=== PATIENT | female | born 1950 | race Caucasian/White ===

== ENCOUNTER 2016-04-13 11:56 | Emergency (ER) | payer OTHER ==
[2016-04-13 12:30] VITALS: BP 131/75; PULSE 90; RESP 18; TEMP 99; O2SAT 93
--- NOTE | 2016-04-13 13:56 | CT ---
CT Brain (Without Contrast) at 1303 hours History: Headache post fall. Comparison: None. Technique: Axial computed tomographic images of the brain without contrast. Dose reduction technique s were utilized. Findings: Ventricles, cisterns, and sulci are normal without atrophy, hydrocephalus, midline shift/h erniation, or epidural/subdural hematomas. No acute intraparenchymal hemorrhage, definite infarct, or mass effect. Bone windows demonstrate no displaced fractures. Paranasal sinuses and mastoid air cell s are clear. Impression: 1. Normal CT brain without contrast. 2. No epidural or subdural hematoma. Findings and recommendations discussed with Emergency Department physician, Dr. Cristiane Villa at 1350 hour, today. Final report concurs with initial preliminary interpretation.
--- NOTE | 2016-04-13 13:56 | UCPHY ---
H & P Time Seen by Provider: 04/13/16 12:14 Patient Type: Established HPI/ROS: 66-year-old female presents complaining that she fell on March 25 hitting the back of her head and since that time she has had intermittent headaches. Review of systems General no fever no chills no weakness HEENT no eye pain no eye discharge. No eye redness, no sore throat Respiratory no cough, no shortness of breath Cardiac no chest pain, no peripheral edema GI no abdominal pain, no diarrhea, no constipation, no nausea, no vomiting no flank pain, no hematuria, no dysuria Musculoskeletal no myalgias, no joint pain Heme no easy bruising, no easy bleeding Endo no polyuria, no polydipsia Skin no rashes, no pruritus Neuro no syncope, no dizziness, positive headaches Psych is no suicidal ideation, no homicidal ideation Past Medical/Surgical History: Hypothyroidism Cervical spine stenosis Hypertension Social History: No alcohol or drug use Smoking Status: Former smoker Physical Exam: 66-year-old female alert and oriented no acute distress nontoxic appearance, afebrile HEENT atraumatic normocephalic, extraocular muscles intact, anicteric Oropharynx negative for erythema negative exudate, tolerating her own secretions Neck supple no meningismus Lungs clear to auscultation bilaterally Heart regular rate and rhythm without murmur rub or gallop Abdomen nondistended normoactive bowel sounds soft nontender Back no CVA tenderness, no step-offs, no spinal tenderness Extremities no cyanosis clubbing or edema Neuro alert and oriented, no focal deficits Constitutional: Initial Vital Signs Temperature (C) 37.2 C 04/13/16 12:15 Heart Rate 90 04/13/16 12:15 Respiratory Rate 18 04/13/16 12:15 Blood Pressure 131/75 H 04/13/16 12:15 O2 Sat (%) 93 04/13/16 12:15 O2 Delivery Mode Room Air Allergies/Adverse Reactions: aspirin [Aspirin] Allergy (Severe, Verified 04/13/16 12:07) Anaphylaxis hydromorphone HCl [From Dilaudid] Allergy (Mild, Verified 04/13/16 12:07) Other-Enter Comments morphine [Morphine] Allergy (Mild, Verified 04/13/16 12:07) Other-Enter Comments adhesive Allergy (Verified 04/13/16 12:07) iodine [Iodine] Allergy (Verified 04/13/16 12:07) ANTIINFLAMMATORIES Allergy (Mild, Uncoded 04/13/16 12:07) Other-Enter Comments Home Medications: Medication Instructions Recorded Cyclobenzaprine [Flexeril 10 MG 10 mg PO TID@,,03/10/14 (*)] Gabapentin [Neurontin 100 MG (*)] 100 - 800 mg PO DAILY PRN 03/10/14 Cholecalciferol Vit D3 [Vitamin D3 3,000 units PO DAILY 04/04/14 (*)] Levothyroxine [Synthroid 100 mcg 100 mcg PO DAILY06 05/24/15 (*)] Propranolol HCl [Inderal 20mg (*)] 20 mg PO BID 02/13/16 Amoxicillin/Clavulanate Pot 875 mg PO BID #8 tab 02/15/16 [Augmentin 875 MG TAB (*)] Amoxicillin/Clavulanate Pot 875 mg PO BID #7 tab 02/16/16 [Augmentin 875 MG TAB (*)] Medical Decision Making - Diagnostics Imaging: CT brain negative CT neck positive degenerative disease however negative for acute subluxation fracture ED Course/Re-evaluation: Patient seen and evaluated for headache following a fall approximately [address] scan head and neck negative for acute injury Impression Concussion/post concussive syndrome Plan Follow-up primary care physician Departure - Departure Disposition: Home, Routine, Self-Care Clinical Impression: Contusion of head Condition: Good Instructions: Concussion (ED) Additional Instructions: follow up with your primary care physician Referrals: D[employer] [Primary Care Provider] - As per Instructions - PQRS PQRS Measurement: na
--- NOTE | 2016-04-13 14:04 | CT ---
CT Scan of the Cervical Spine (Without Contrast) (With Multiplanar Reconstructions) at 1303 Hours Clinical Indications: Fall, pain. Technique: Thinly collimated multidetector helical CT imaging of the cervical spine was reviewed in multiple planes. Multiplanar reconstructions reviewed on [employer] workstation and performed to better e valuate alignment. Dose reduction techniques were utilized. Findings: No definite acute cervical spine fracture. No evidence of cervical compression fracture. O dontoid appears intact. No spinous process fracture. Slight reversal of normal lordotic curvature. No craniocervical stenosis. C2-C3: Right facet arthropathy and small central disk protrusion resulting in mild central canal sten osis. C3-C4: Mild degenerative disk disease and bilateral facet arthropathy with dorsal disk/osteophyte com plex resulting in mild central canal stenosis and xlvt-[id number] right neural foraminal stenosis. C4-C5: Moderate degenerative disk disease and dorsal disk/osteophyte complex and bilateral uncoverteb ral osteophytes resulting in mild central canal stenosis and vefi-ef-chryubuv bilateral neural forami nal stenosis. C5-C6: Severe degenerative disk disease with dorsal disk/osteophyte complex and bilateral uncovertebr al osteophytes, right greater than left with mild bilateral facet arthropathy resulting in moderate c entral canal stenosis, moderate to severe right neural foraminal stenosis and inrw-cv-wstjzean left n eural foraminal stenosis. C6-C7: Severe degenerative disk disease, degenerative retrolisthesis, dorsal disk/osteophyte complex and bilateral uncovertebral osteophytes resulting in at least moderate central canal stenosis and mod erate to severe bilateral neural foraminal stenosis. C7-T1: No bony stenosis. Impression: 1. No definite fracture. 2. Multilevel moderate to severe degenerative disk disease especially from C4 to C5 through C6-C7 res ulting in [id number] central canal stenosis, worse at C5-C6 and C6-C7, and moderate to severe b ilateral neural foraminal stenosis as described above. 3. If there is persistent pain or neurological deficit, recommend MR cervical spine and consider flex ion and extension views, if clinically indicated. Findings and recommendations discussed with Emergency Department physician, Dr. Cristiane Villa at 1350 hours, today. Final report concurs with initial preliminary interpretation.
== END 2016-04-13 14:10 | disposition home or self-care (01) ==
LOC: CED 11:56
DX: S06.0X0A Concussion without loss of consciousness, initial encounter (principal)
CPT/HCPCS: 70450; 72125; G0463; 99215-PO

== ENCOUNTER 2017-04-29 07:33 | Inpatient (IN) | payer OTHER ==
[2017-04-29] MEDS ORDERED: LIDOCAINE 1% 2 ML INJ ONE (07:48)
[2017-04-29] MEDS ORDERED: cefOXitin SODIUM 2 GM in STERILE WATER INJ 21 ML IV ONE (07:56)
[2017-04-29] MEDS ORDERED: LIDOCAINE 1% 2 ML INJ ID PRN (07:56)
[2017-04-29] MEDS ORDERED: LR 1,000 ML IV ONE (07:56)
--- NOTE | 2017-04-29 08:36 | PDANEPAE ---
ANE History of Present Illness preop evaluation ANE Past Medical History - Cardiovascular History Hx Hypertension: No Hx Arrhythmias: No Hx Chest Pain: No Hx Coronary Artery / Peripheral Vascular Disease: No Hx CHF / Valvular Disease: Yes Hx Palpitations: No - Pulmonary History Hx COPD: No Hx Asthma/Reactive Airway Disease: No Hx Recent Upper Respiratory Infection: No Hx Oxygen in Use at Home: No Hx Sleep Apnea: Yes Sleep Apnea Screening Result - Last Documented: Positive Pulmonary History Comment: POS TATE - Neurologic History Hx Cerebrovascular Accident: No Hx Seizures: No Hx Dementia: No Neurologic History Comment: SEIZURES ACHILD - Endocrine History Hx Diabetes: No Endocrine History Comment: REACTIVE HYPOGLYCEMIC - Renal History Hx Renal Disorders: No - Liver History Hx Hepatic Disorders: No - Neurological & Psychiatric Hx Hx Neurological and Psychiatric Disorders: Yes Neurological / Psychiatric History Comment: ESSENTIAL TREMOR,RAYNARDS - Cancer History Hx Cancer: No - Congenital Disorder History Hx Congenital Disorders: No - GI History Hx Gastrointestinal Disorders: Yes Gastrointestinal History Comment: POLYPS,DIVERTICULOSIS - Other Health History Other Health History: BLISTERS FROM MEDICATION WHICH DO NOT HEAL WELL. TEAR IN LEFT EYE. EARLY GLAUCOMA - Chronic Pain History Chronic Pain: Yes (FIBROMYALGIA) - Surgical History Prior Surgeries: rectocele,hysterectomy. hand surgery with Dr Schmitt. skull fracture as child ANE Review of Systems Review of Systems: - Exercise capacity METS (RN): 3 METS ANE Patient History - Allergies Allergies/Adverse Reactions: aspirin [Aspirin] Allergy (Severe, Verified 04/13/16 12:07) Anaphylaxis hydromorphone HCl [From Dilaudid] Allergy (Mild, Verified 04/13/16 12:07) Other-Enter Comments ibuprofen Allergy (Mild, Verified 04/29/17 07:57) Nausea, abdominal pain morphine [Morphine] Allergy (Mild, Verified 04/13/16 12:07) Other-Enter Comments adhesive Allergy (Verified 04/13/16 12:07) iodine [Iodine] Allergy (Verified 04/13/16 12:07) ANTIINFLAMMATORIES Allergy (Mild, Uncoded 04/13/16 12:07) Other-Enter Comments - Home Medications Home Medications: Cyclobenzaprine [Flexeril 10 MG (*)] 10 mg PO TID 03/10/14 [Last Taken 04/29/17] Gabapentin [Neurontin 100 MG (*)] 100 mg PO Q3HRS PRN 03/10/14 [Last Taken 04/29] Levothyroxine [Synthroid 100 mcg (*)] 100 mcg PO SUMOTUWETHFR 05/24/15 [Last Taken 04/29/17] Propranolol HCl [Inderal 20mg (*)] 20 mg PO TID@09,12,16 02/13/16 [Last Taken ] Amitriptyline HCl [Elavil 10 mg (*)] 20 mg PO HS PRN 04/25/17 [Last Taken Unknown] Carboxymethylcellulose 1% [Refresh Celluvisc (*)] 1 drop EACHEYE BID PRN [Last Taken 04/28/17] Cholecalciferol Vit D3 [Vitamin D3 2000 units tab (OTC)] 4,000 units PO DAILY [Last Taken 04/24/17] Herbals/Supplements -Info Only 1 ea PO DAILY 04/25/17 [Last Taken 04/26/17] traMADol [Ultram 50 mg (*)] 50 - 100 mg PO BID PRN 04/25/17 [Last Taken 03/25/17 ] - NPO status NPO Since - Liquids (Date): 04/28/17 NPO Since - Liquids (Time): 22:00 NPO Since - Solids (Date): 04/27/17 NPO Since - Solids (Time): 08:03 - Smoking Hx Smoking Status: Former smoker - Family Anes Hx Family Hx Anesthesia Complications: none ANE Labs/Vital Signs - Vital Signs Blood Pressure: 104/69 Heart Rate: 84 Respiratory Rate: 16 O2 Sat (%): 93 Height: 157.48 cm Weight: 80.921 kg ANE Physical Exam - Airway Neck exam: decreased ROM Mallampati Score: Class 4 Mouth exam: small mouth opening - Pulmonary Pulmonary: no respiratory distress - Cardiovascular Cardiovascular: regular rate and rhythym - ASA Status ASA Status: III ANE Anesthesia Plan Total IV Anesthesia: Yes
[2017-04-29] MEDS ORDERED: PROPOFOL 200 MG/20 ML VIAL ONE ×2 (08:58)
--- NOTE | 2017-04-29 09:00 | PDGENHP ---
History & Physical Chief Complaint: phx polyps History of Present Illness: phx polyps Pertinent Past, Social, Family History: fhx cc father. no tobacco, no alcohol. phx polyps Relevant Physical Exam: A+Ox3. CTA. S1S2. +BS, soft nt Cardiorespiratory Assessment: class 3
[2017-04-29] MEDS ORDERED: NALOXONE HCL 0.4 MG/ML INJ IVP PRN ×2 (09:13→09:40)
[2017-04-29] MEDS ORDERED: ONDANSETRON 4 MG/2 ML VIAL IVP PRN (10:22)
[2017-04-29] MEDS ORDERED: ONDANSETRON DISINTEGRATING 4 MG TAB PO PRN (10:22)
[2017-04-29] MEDS ORDERED: traMADol 50 MG TAB PO PRN (10:25)
[2017-04-29] MEDS ORDERED: AMITRIPTYLINE HCL 10 MG TAB PO PRN (10:25)
[2017-04-29] MEDS ORDERED: CARBOXYMETHYLCELLULOSE 1% 0.4 ML DROPERETTE EACHEYE PRN (10:25)
--- NOTE | 2017-04-29 10:41 | GIREPORT ---
Replaced By [facility] - Endoscopy Department Patient Name: Christal Almeida Procedure Date: 04/29/2017 8:37 AM Patient Type: Outpatient Attending MD/ ER Physician: Pranav Dominguez Procedure: Colonoscopy Indications: High risk colon cancer surveillance: Personal history of non-advanced a denoma Providers: Adolph Holliday MD Referring MD: Dang Veliz NP Medicines: Sedation Required Anesthesia Staff Assistance Complications: No immediate complications. Estimated blood loss: Minimal. Description of Procedure: After obtaining informed consent, the scope was passed under direct vis ion. Throughout the procedure, the patient's blood pressure, pulse, and oxyg en saturations were monitored continuously. The Colonoscope with irrigatio n channel was introduced through the anus and advanced to the terminal il eum, with identification of the appendiceal orifice and IC valve. The colono scopy was performed without difficulty. The patient tolerated the procedure w ell. The quality of the bowel preparation was good. Findings: The digital rectal exam was normal. The terminal ileum appeared normal. A 4 mm polyp was found in the sigmoid colon. The polyp was semi-sessile . The polyp was removed with a piecemeal technique using a cold biopsy forcep s. Resection and retrieval were complete. Estimated blood loss was minimal . Multiple small and large-mouthed diverticula were found in the sigmoid colon and descending colon. The exam was otherwise without abnormality. Estimated Blood Loss: Estimated blood loss was minimal. Post Op Diagnosis: - The examined portion of the ileum was normal. - One 4 mm polyp in the sigmoid colon, removed piecemeal using a cold b iopsy forceps. Resected and retrieved. - Diverticulosis in the sigmoid colon and in the descending colon. - The examination was otherwise normal. Recommendation: - Await pathology results. - My office will call with the pathology result with 5-7 days. If you h ave not heard from my office by 12-14, do not assume the pathology is judd l, please call [phone] to get the pathology results. - Repeat colonoscopy in 5 years for surveillance. - Admit the patient to [facility] prior to surgery. - Clear liquid diet. Pending her pre-op surgery evaluation. - outpt I want her on a high fiber diet. No need to avoid seeds or n uts with diverticulosis, just chew food well. - Thank you for allowing me to help in your patient's care. Do not hesi krueger to call with any questions. Attending Participation: I personally performed the entire procedure. Miya Farfan M.D Adolph Holliday MD 04/29/2017 10:40:51 AM This report has been signed electronicallyMathew MD Miya Number of Addenda: 0 Note Initiated On: 04/29/2017 8:37 AM Total Procedure Duration Time 0 hours 20 minutes 57 seconds [email or web address]
[2017-04-29] MEDS: NS 1,000 ML IV SCH ×2 (11:31→20:24)
[2017-04-29] MEDS: GABAPENTIN 100 MG CAP PO PRN ×3 (12:50→20:23)
[2017-04-29] MEDS: CYCLOBENZAPRINE 10 MG TAB PO SCH ×2 (13:24→20:23)
--- NOTE | 2017-04-29 15:23 | PDHPUP ---
History & Physical Update H&P update statement: This history and physical update is based on an assessment of the patient which was completed after admission or registration (within 24 hours), but prior to the surgery/procedure.
--- NOTE | 2017-04-29 15:33 | GHP ---
[f rep st] HISTORY AND PHYSICAL DATE OF ADMISSION: 04/29/2017 REASON FOR ADMISSION: Elective surgery. HISTORY OF PRESENT ILLNESS: A 67-year-old female with a history of colon polyps, diverticulosis and diverticulitis, who presents after colonoscopy and the decision for elective hemicolectomy. Patient denies any active abdominal pain on my evaluation. She denies shortness of breath. Denies recent fe vers or chills. Denies upper respiratory symptoms, rhinorrhea, sore throat or cough. Denies any dys uria, hematuria. Has chronic leg spasms and pain which have been stable. Denies any difficulty with her stools or blood in her stools. PAST MEDICAL HISTORY: 1. 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 2. Diverticulosis/diverticulitis. 3. Fibromyalgia. 4. Arthritis. 5. Raynaud's. 6. Tremor. SOCIAL HISTORY: Negative for tobacco, alcohol, or illicit drugs. FAMILY HISTORY: Positive for colon cancer. REVIEW OF SYSTEMS: A 10-point review of systems is negative with the exception of that reported in t he HPI. ADVANCED DIRECTIVES: Patient is full COR, full tube. PHYSICAL EXAMINATION: VITAL SIGNS: Blood pressure is 103/63, heart rate 71, respiratory rate 16, sa tting 100% on 1 L, 36.2. GENERAL: A middle-aged female, in no acute distress. HEENT: Notable for moist mucous membranes. Eye exam is negative for any icterus. CARDIAC: Regular rate and rhythm. P ULMONARY: Clear to auscultation bilaterally. GASTROINTESTINAL: Has positive bowel sounds. Abdomen is soft and nontender in all 4 quadrants. MUSCULOSKELETAL: Negative for any lower extremity edema. SKIN: Negative for any rashes. NEUROLOGIC: Alert and oriented x3. PSYCHIATRIC: She is pleasant a nd cooperative on interview and examination. DATA: Noncontrast CT of the head from 1 year ago shows no acute intracranial process. Echo from 2009 reviewed, shows normal LV size and function with concentric LVH. Laboratory last checked: Hemoglobin 12.4, hematocrit 37.0, blood glucose is 75. ASSESSMENT AND PLAN: This is a 67-year-old female, presenting for elective surgery/hemicolectomy by Dr. Iverson. 1. Elective partial colectomy. Patient will receive clears today and be made nothing per mouth afte r midnight. Have ordered basic metabolic, CBC, and coags for the morning. 2. Hypothyroidism. Will continue patient's outpatient Synthroid therapy. 3. Fibromyalgia. Patient has drug sensitivities to narcotics. Will continue her outpatient Flexeri l, gabapentin, and Ultram. She does report that she can use intravenous sentinel with scheduled intr avenous antiemetics if necessary postop. PROPHYLAXIS: In anticipation of surgery, will place SCDs only and hold Lovenox. Diet: Clear. DISPOSITION: Expecting greater than 2 midnights as the patient is anticipating intraabdominal surger y which will require postoperative recovery time. I discussed the case with Dr. Iverson. We will give the patient clears today, make her n.p.o. after mi dnight for the OR tomorrow. /[id number]/MODL
[2017-04-29] MEDS ORDERED: CYCLOBENZAPRINE 10 MG TAB PO SCH (16:00)
[2017-04-29] MEDS: PROPRANOLOL HCL 20 MG TAB PO SCH ×2 (17:31→17:38)
--- NOTE | 2017-04-29 17:48 | SOAPPROG ---
[facility] Progress Note Assessment/Plan: Assessment: 67 yo with rectal prolapse, history of multiple attacks of diverticulitus and sigmoid polyp Tolerated colonoscopy well Will proceed with sigmoidectomy with possible ostomy tomorrow. RIsks and benefits discussed Plan: 04/29/17 17:46 Objective: Vital Signs Temp Pulse Resp BP Pulse Ox 36.6 C 70 12 106/70 91 L 04/29/17 15:56 04/29/17 17:38 04/29/17 15:56 04/29/17 17:38 04/29/17 15:56 04/28/17 04/29/17 04/30/17 05:59 05:59 05:59 Intake Total 2085 Output Total 0 Balance 2085 ICD10 Worksheet Patient Problems: Problems Problem Status Onset Back pain Acute Diverticulitis Acute
[2017-04-29] MEDS: ACETAMINOPHEN 325 MG TAB PO PRN (20:23)
[2017-04-30] MEDS: NS 1,000 ML IV SCH (04:50)
[2017-04-30] MEDS: LEVOTHYROXINE 100 MCG TAB PO SCH (04:50)
[2017-04-30 05:44] LABS: PLATELET COUNT 266 10^3/uL (150-400)
[2017-04-30 05:53] LABS: INR 1.12 (0.83-1.16); PROTIME(PATIENT) 14.6 SEC (12.0-15.0)
--- NOTE | 2017-04-30 06:11 | PDANEPAE ---
ANE History of Present Illness 67 yo female with diverticulosis/diverticulitis for elective R hemicolectomy. ANE Past Medical History - Cardiovascular History Hx Hypertension: No Hx Arrhythmias: No Hx Chest Pain: No Hx Coronary Artery / Peripheral Vascular Disease: No Hx CHF / Valvular Disease: Yes Hx Palpitations: No Cardiovascular History Comment: MVP per pt. - Pulmonary History Hx COPD: No Hx Asthma/Reactive Airway Disease: No Hx Recent Upper Respiratory Infection: No Hx Oxygen in Use at Home: No Hx Sleep Apnea: Yes Sleep Apnea Screening Result - Last Documented: Positive Pulmonary History Comment: POS TATE uses CPAP - Neurologic History Hx Cerebrovascular Accident: No Hx Seizures: No Hx Dementia: No Neurologic History Comment: SEIZURES A CHILD - Endocrine History Hx Diabetes: No Hypothyroid: No Obesity: no Endocrine History Comment: REACTIVE HYPOGLYCEMIA - Renal History Hx Renal Disorders: No - Liver History Hx Hepatic Disorders: No - Neurological & Psychiatric Hx Hx Neurological and Psychiatric Disorders: Yes Neurological / Psychiatric History Comment: ESSENTIAL TREMOR,RAYNAUDS - Cancer History Hx Cancer: No - Congenital Disorder History Hx Congenital Disorders: No - GI History Hx Gastrointestinal Disorders: Yes Gastrointestinal History Comment: POLYPS,DIVERTICULOSIS - Other Health History Other Health History: BLISTERS FROM MEDICATION WHICH DO NOT HEAL WELL. TEAR IN LEFT EYE. EARLY GLAUCOMA - Chronic Pain History Chronic Pain: Yes (FIBROMYALGIA) - Surgical History Prior Surgeries: rectocele,hysterectomy. hand surgery with Dr Schmitt. skull fracture as child ANE Review of Systems Review of Systems: - Exercise capacity METS (RN): 3 METS - Systems Constitutional: Reports: no symptoms EENMT: Reports: no symptoms Respiratory: Reports: no symptoms Gastrointestinal: Reports: no symptoms ANE Patient History - Allergies Allergies/Adverse Reactions: aspirin [Aspirin] Allergy (Severe, Verified 04/13/16 12:07) Anaphylaxis hydromorphone HCl [From Dilaudid] Allergy (Mild, Verified 04/13/16 12:07) Other-Enter Comments ibuprofen Allergy (Mild, Verified 04/29/17 07:57) Nausea, abdominal pain morphine [Morphine] Allergy (Mild, Verified 04/13/16 12:07) Other-Enter Comments adhesive Allergy (Verified 04/13/16 12:07) iodine [Iodine] Allergy (Verified 04/13/16 12:07) ANTIINFLAMMATORIES Allergy (Mild, Uncoded 04/13/16 12:07) Other-Enter Comments - Home Medications Home Medications: Cyclobenzaprine [Flexeril 10 MG (*)] 10 mg PO TID 03/10/14 [Last Taken 04/29/17] Gabapentin [Neurontin 100 MG (*)] 100 mg PO Q3HRS PRN 03/10/14 [Last Taken 04/29] Levothyroxine [Synthroid 100 mcg (*)] 100 mcg PO SUMOTUWETHFR 05/24/15 [Last Taken 04/29/17] Propranolol HCl [Inderal 20mg (*)] 20 mg PO TID@09,12,16 02/13/16 [Last Taken ] Amitriptyline HCl [Elavil 10 mg (*)] 20 mg PO HS PRN 04/25/17 [Last Taken Unknown] Carboxymethylcellulose 1% [Refresh Celluvisc (*)] 1 drop EACHEYE BID PRN [Last Taken 04/28/17] Cholecalciferol Vit D3 [Vitamin D3 2000 units tab (OTC)] 4,000 units PO DAILY [Last Taken 04/24/17] Herbals/Supplements -Info Only 1 ea PO DAILY 04/25/17 [Last Taken 04/26/17] traMADol [Ultram 50 mg (*)] 50 - 100 mg PO BID PRN 04/25/17 [Last Taken 03/25/17 ] - NPO status NPO Status: no food or drink >8 hours NPO Since - Liquids (Date): 04/29/17 NPO Since - Liquids (Time): 23:51 NPO Since - Solids (Date): 04/29/17 NPO Since - Solids (Time): 17:00 - Anes Hx Anes Hx: post operative nausea and vomiting - Smoking Hx Smoking Status: Former smoker - Alcohol Use Alcohol Use: Rarely - Family Anes Hx Family Anes Hx: neg - N/A Family Hx Anesthesia Complications: none ANE Labs/Vital Signs - Labs Result Diagrams: 04/30/17 05:01 04/30/17 05:01 - Vital Signs Blood Pressure: 105/66 Heart Rate: 74 Respiratory Rate: 16 O2 Sat (%): 90 Height: 157.48 cm Weight: 80.921 kg ANE Physical Exam - Airway Neck exam: decreased ROM Mallampati Score: Class 4 (short TMD, small MO) Mouth exam: normal dental/mouth exam - Pulmonary Pulmonary: clear to auscultation - Cardiovascular Cardiovascular: regular rate and rhythym - ASA Status ASA Status: III ANE Anesthesia Plan Anesthesia Plan: general endotracheal anesthesia, spinal
[2017-04-30] MEDS ORDERED: LR 1,000 ML IV SCH (06:30)
--- NOTE | 2017-04-30 07:01 | PDHPUP ---
History & Physical Update H&P update statement: This history and physical update is based on an assessment of the patient which was completed after admission or registration (within 24 hours), but prior to the surgery/procedure. H&P update: H&P reviewed & patient examined, no change in patient's condition since H&P completed
[2017-04-30] MEDS ORDERED: fentaNYL 100 MCG/2 ML INJ IVP ONE (07:18)
[2017-04-30] MEDS ORDERED: fentaNYL 100 MCG/2 ML INJ ONE (07:23)
[2017-04-30] MEDS ORDERED: BUPIVACAINE 0.5% 30 ML SDV ONE (07:26)
[2017-04-30] MEDS ORDERED: DEXAMETHASONE 4 MG/ML VIAL ONE (07:27)
[2017-04-30] MEDS ORDERED: ROCURONIUM 100 MG/10 ML VIAL ONE (07:27)
[2017-04-30] MEDS ORDERED: morphINE PF 5 MG/10 ML INJ ONE (07:27)
[2017-04-30] MEDS ORDERED: PROPOFOL/EMULSION 500 MG/50 ML BOTTLE IV ONE ×2 (07:27→10:06)
[2017-04-30] MEDS ORDERED: LIDOCAINE 2% 5 ML SDV ONE (07:27)
[2017-04-30] MEDS ORDERED: INDOCYANINE GREEN 25 MG VIAL ONE (09:08)
--- NOTE | 2017-04-30 09:24 | ASMTCMCOM ---
CM Note CM Note Notes: Patient admitted with rectal prolapse and multiple attacks of diverticulitis. She had a colonscopy yesterday and went to OR today for sigmoidectomy and possible ostomy. She lives with her . No therapies have been ordered. Case Management will follow for discharge planning. Date Signed: 04/30/2017 09:23 AM Electronically Signed By:Ginger Cabrera RN
[2017-04-30] MEDS ORDERED: SUGAMMADEX SODIUM 200 MG/2 ML VIAL IVP ONE ×2 (10:17→11:23)
[2017-04-30] MEDS ORDERED: ONDANSETRON 4 MG/2 ML VIAL ONE (11:24)
[2017-04-30] MEDS ORDERED: PROMETHAZINE HCL 25 MG/ML INJ IVP PRN ×2 (11:29→11:42)
--- NOTE | 2017-04-30 11:31 | POSTOPPROG ---
Post Op Note Date of Operation: 04/30/17 Surgeon: Zahida Iverson Sleep Technician: neda Anesthesiologist: koroma Anesthesia: GET(General Endotracheal) Pre-op Diagnosis: rectal prolapse and divertic Post-op Diagnosis: same Indication: 67 yo with rectal prolapse and two episodes of divertic Procedure: davinci sigmoidectomy with transanal excision Findings: redundant colon, small amount of divertic Inf/Abcess present in the surg proc area at time of surgery?: No Depth: Superfical (Skin SQ) EBL: Minimal Specimen(s): colon
[2017-04-30] MEDS ORDERED: fentaNYL 100 MCG/2 ML INJ IVP PRN (11:42)
[2017-04-30] MEDS ORDERED: NALOXONE HCL 0.4 MG/ML INJ IVP PRN (11:42)
[2017-04-30] MEDS ORDERED: ACETAMINOPHEN 500 MG TAB PO PRN (11:42)
[2017-04-30] MEDS ORDERED: OXYCODONE/APAP 5/325 TAB PO PRN (11:42)
[2017-04-30] MEDS ORDERED: LR 500 ML IV PRN (11:42)
--- NOTE | 2017-04-30 11:42 | POSTANESTH ---
Post Anesthetic Evaluation Cardiovascular Status: Normal, Stable Respiratory Status: Normal, Stable Level of Consciousness/Mental Status: Can Participate in Eval, Moderately Sleepy Pain Control: Adequate, Prn Tx Ordered Nausea/Vomiting Control: Adequate, Prn Tx Ordered Complications Possibly Related to Anesthesia: None Noted
[2017-04-30] MEDS: CYCLOBENZAPRINE 10 MG TAB PO SCH ×3 (12:47→20:40)
[2017-04-30] MEDS: CHOLECALCIFEROL VIT D3 2,000 UNITS TAB/CAP PO SCH (12:49)
[2017-04-30] MEDS: PROPRANOLOL HCL 20 MG TAB PO SCH ×4 (12:50→18:06)
[2017-04-30] MEDS: ERTAPENEM 1 GM VIAL IV SCH (12:51)
--- NOTE | 2017-04-30 14:54 | HOSPPROG ---
Hospitalist Progress Note Assessment/Plan: # h/o rectal prolapse and multiple episodes of diverticulitis- s/p elective sigmoidectomy today some abdominal pain - otherwise without nausea- polyp path pending from colonoscopy yesterday oxygen saturations 93% on 1L - NPO - diet per surgery - fentanyl IV with antiemetics prn - Dr. Iverson following # Fibromyalgia - con resume PO home meds when cleared for PO # hypothyroid - cont Synthroid therapy # proph - per surgery SCD's # diet - NPO #dispo - > 2MN as pt requires post operative monitoring and recovery time I have discussed the case with the RN - will use prn Fentanyl with antiemetics if needed Subjective: abd pain Objective: Vital Signs Temp Pulse Resp BP Pulse Ox 35.8 C L 77 18 106/68 93 04/30/17 14:02 04/30/17 14:02 04/30/17 14:02 04/30/17 14:02 04/30/17 14:02 Laboratory Results 04/30/17 05:01 04/30/17 05:01 04/29/17 04/30/17 05/01/17 05:59 05:59 05:59 Intake Total 3765 1815 Output Total 1 400 Balance 3764 1415 PT 14.6 SEC (12.0-15.0) 04/30/17 05:01 INR 1.12 (0.83-1.16) 04/30/17 05:01 - Physical Exam Constitutional: appears nourished Eyes: anicteric sclera Ears, Nose, Mouth, Throat: moist mucous membranes Cardiovascular: regular rate and rhythym Respiratory: no respiratory distress Gastrointestinal: normoactive bowel sounds Genitourinary: no bladder fullness Skin: warm Musculoskeletal: No asymmetric calves Neurologic: AAOx3 Psychiatric: interacting appropriately Lymph, Heme, Immunologic: no cervical LAD ICD10 Worksheet Patient Problems: Problems Problem Status Onset Back pain Acute Diverticulitis Acute
[2017-04-30] MEDS: traMADol 50 MG TAB PO PRN (16:16)
[2017-04-30] MEDS: GABAPENTIN 100 MG CAP PO PRN ×2 (16:17→20:40)
[2017-04-30] MEDS: ACETAMINOPHEN 325 MG TAB PO PRN (18:07)
[2017-04-30] MEDS ORDERED: ALTEPLASE 2 MG VIAL IVP PRN (19:19)
[2017-05-01] MEDS: ACETAMINOPHEN 325 MG TAB PO PRN (00:03)
[2017-05-01] MEDS: CYCLOBENZAPRINE 10 MG TAB PO SCH ×3 (05:59→21:33)
[2017-05-01] MEDS: LEVOTHYROXINE 100 MCG TAB PO SCH (05:59)
[2017-05-01] MEDS: GABAPENTIN 100 MG CAP PO PRN ×3 (06:04→21:33)
[2017-05-01] MEDS: PROPRANOLOL HCL 20 MG TAB PO SCH ×3 (08:41→15:21)
[2017-05-01] MEDS: CHOLECALCIFEROL VIT D3 2,000 UNITS TAB/CAP PO SCH (08:42)
[2017-05-01] MEDS: ERTAPENEM 1 GM VIAL IV SCH (08:42)
--- NOTE | 2017-05-01 09:02 | SOAPPROG ---
SOAP Progress Note Assessment/Plan: Assessment: POD1 s/p robot-assist sigmoidectomy with transanal excision passing flatus advance to clears remove deshpande pain controlled S: deshpande is very uncomfortable for her. passing gas. O: laying in bed, comfortable, NAD Clear anteriorly, no increased WOB +BS, softly distended. nontender. incisions CDI Deshpande clear yellow urine Objective: Vital Signs Temp Pulse Resp BP Pulse Ox 36.3 C 78 20 87/56 L 92 05/01/17 08:38 05/01/17 08:38 05/01/17 08:38 05/01/17 08:41 05/01/17 08:38 Laboratory Results 04/30/17 05:01 04/30/17 05:01 04/30/17 05/01/17 05/02/17 05:59 05:59 05:59 Intake Total 3765 2763 Output Total 1 775 450 Balance 3764 1988 -450 PT 14.6 SEC (12.0-15.0) 04/30/17 05:01 INR 1.12 (0.83-1.16) 04/30/17 05:01 ICD10 Worksheet Patient Problems: Problems Problem Status Onset Back pain Acute Diverticulitis Acute
--- NOTE | 2017-05-01 11:25 | HOSPPROG ---
Hospitalist Progress Note Assessment/Plan: # h/o rectal prolapse and multiple episodes of diverticulitis- s/p elective sigmoidectomy POD #1 - clear liquids today per surg - fentanyl IV with antiemetics prn - Dr. Iverson following # hypotension - suspect volume depletion - NS bolus, cont IVF's - hold parameters on propranolol (takes for essential tremor and refuses to let me officially hold this) # Fibromyalgia - resume PO home meds # hypothyroid - cont Synthroid # TATE - cont home CPAP # proph - per surgery SCD's #dispo - cont inpt Subjective: Pt feeling ok. Some abdominal pain, worse with activity. No fevers. +flatus, no BM. No vomiting. Recovering well. Objective: Vital Signs Temp Pulse Resp BP Pulse Ox 36.3 C 78 20 87/56 L 92 05/01/17 08:38 05/01/17 08:38 05/01/17 08:38 05/01/17 08:41 05/01/17 08:38 Laboratory Results 04/30/17 05:01 04/30/17 05:01 04/30/17 05/01/17 05/02/17 05:59 05:59 05:59 Intake Total 3765 2763 Output Total 1 775 575 Balance 3764 1987 -575 PT 14.6 SEC (12.0-15.0) 04/30/17 05:01 INR 1.12 (0.83-1.16) 04/30/17 05:01 - Physical Exam Constitutional: no apparent distress Eyes: PERRL Ears, Nose, Mouth, Throat: moist mucous membranes Cardiovascular: regular rate and rhythym Respiratory: no respiratory distress Gastrointestinal: normoactive bowel sounds, soft, non-tender abdomen, other ( incisions c/d/i) Skin: warm Musculoskeletal: full muscle strength Neurologic: AAOx3 Psychiatric: interacting appropriately ICD10 Worksheet Patient Problems: Problems Problem Status Onset Back pain Acute Diverticulitis Acute
[2017-05-01] MEDS ORDERED: NS 1,000 ML IV ONE (11:27)
--- NOTE | 2017-05-01 13:27 | GOP ---
[f rep st] OPERATIVE REPORT DATE OF OPERATION: 04/30/2017 SURGEON: Zahida Iverson MD GPS FIELD DATA COLLECTOR: Sorin Almodovar MD and DILCIA Che ANESTHESIA: General. ANESTHESIOLOGIST: Sandra Mendoza MD PREOPERATIVE DIAGNOSIS: Rectal prolapse and recurrent bouts of diverticulitis. POSTOPERATIVE DIAGNOSIS: Rectal prolapse and recurrent bouts of diverticulitis. PROCEDURE PERFORMED: da Armand-assisted sigmoid colectomy. FINDINGS: One area that looked consistent with history of diverticulitis, and redundant colon and rectum. SPECIMENS: Sigmoid colon. ESTIMATED BLOOD LOSS: 25 cc. INDICATIONS: The patient is a 67-year-old woman who has dealt with symptoms of prolapse and recurrent episodes of diverticulitis. She has to push on her perineum in order to have bowel movements. On exam, she did not have a large amount of rectal prolapse. She also had recurrent episodes of diverticulitis. DESCRIPTION OF PROCEDURE: The patient was brought into the operating room, placed supine on the table, and general anesthesia was administered. She was then placed in a lithotomy position. Her abdomen and perineum were prepped and draped in the usual sterile fashion. Infiltrated all sites with 0.5% Marcaine prior to making incisions. I made an incision above the umbilicus and toward the right. I elevated this. I inserted the Veress needle, it passed the hanging drop test. Her abdomen insufflated easily to a pressure of 15 mmHg. I placed the robotic trocar at this site. I placed the camera and there were no injuries from Veress needle placement. Under direct vision, I placed a trocar in the right lower quadrant, a trocar on the left lateral abdomen, and a trocar between the 1st and 3rd trocars. She was placed in the Trendelenburg position. The robot was brought in and docked. I placed a Kraig grasper in arm #1, the vessel sealer in arm #2, and the graptor in arm #3. I moved to the console. I retracted her bowel cephalad. I lifted her sigmoid colon cephalad and laterally. I then used the vessel sealer to divide the sigmoid vessels. I selected an area where the tenia splayed low in her pelvis at the peritoneal reflection. I continued my dissection cephalad to a point where the colon would reach nicely into the pelvis without redundancy. I stayed close to the colon in order to avoid the ureter. Once I selected my points of proximal and distal transection, I used a stapler to divide each of these areas. Next, I removed the staple line on the rectal stump. The sigmoid colon was grasped through the rectum and removed transanally. The anvil was inserted prior to restapling the rectal stump. I then stapled the rectal stump again. Next, I removed the staple line on the descending colon and this was removed via a port. I used a 2-0 Vicryl and performed a pursestring suture around the anvil on the descending colon. There was a slight gap and so I performed a second layer of a pursestring suture with 2-0 Vicryl. Next, the spike was deployed through the rectum and connected to the anvil. The stapler was tightened and deployed. The anastomosis was without tension or torsion. I performed an air leak test and no leak was noted. Suction irrigation was performed. AmnioFix was placed around the anastomosis. I then looked for a place to perform a rectopexy but the area of the rectum was quite low in the pelvis in comparison to the sacral promontory. I did not want to stretch this further as I was worried this would disrupt the anastomosis. There was no evidence of prolapse. The ports were removed under direct vision and the abdomen allowed to desufflate. The fascia at the 10 mm trocar site was closed with 0 Vicryl. Skin closed with 4-0 Monocryl. Dermabond applied. She was awakened in the operating room, extubated, transferred to PACU in stable condition. /[id number]/MODL MTDD
[2017-05-01] MEDS: NS 1,000 ML IV SCH ×2 (13:31→21:41)
[2017-05-02] MEDS: LEVOTHYROXINE 100 MCG TAB PO SCH (05:39)
[2017-05-02] MEDS: CYCLOBENZAPRINE 10 MG TAB PO SCH ×3 (05:39→21:10)
[2017-05-02] MEDS: GABAPENTIN 100 MG CAP PO PRN ×2 (05:40→20:02)
[2017-05-02] MEDS: NS 1,000 ML IV SCH (05:42)
[2017-05-02 05:58] LABS: PLATELET COUNT 215 10^3/uL (150-400)
[2017-05-02] MEDS: D5W NS 1,000 ML IV SCH ×2 (08:13→21:14)
--- NOTE | 2017-05-02 09:03 | SOAPPROG ---
SOAP Progress Note Assessment/Plan: 67 yo female with rectal prolapse, history of multiple attacks of diverticulitus and sigmoid polyp, s/p sigmoidectomy 04/30/17 Assessment/Plan: POD2 s/p robot-assist sigmoidectomy with transanal excision Sip lightly on clears today until passing flatus and abdominal distention has decreased pain controlled S: Patient woke up at 0230 with abdominal distention and discomfort, she has not passed flatus since last night. This morning she is still distended but less so than last night. No flatus today, no BM, urinating well. Pain controlled, but sure when mobile. O: General: laying in bed, comfortable, NAD Abdomen: +BS, mildly distended, nontender, incisions CDI with some mild ecchymosis Objective: Vital Signs Temp Pulse Resp BP Pulse Ox 36.7 C 93 18 111/58 L 94 05/02/17 08:54 05/02/17 08:54 05/02/17 08:54 05/02/17 08:54 05/02/17 08:54 Laboratory Results 05/02/17 04:30 05/02/17 04:30 05/01/17 05/02/17 05/03/17 05:59 05:59 05:59 Intake Total 5575 1812 110 Output Total 805 2165 Balance 1988 854 110 PT 14.6 SEC (12.0-15.0) 04/30/17 05:01 INR 1.12 (0.83-1.16) 04/30/17 05:01 ICD10 Worksheet Patient Problems: Problems Problem Status Onset Back pain Acute Diverticulitis Acute
[2017-05-02] MEDS: fentaNYL 100 MCG/2 ML INJ IVP PRN ×4 (10:10→18:24)
[2017-05-02] MEDS: CHOLECALCIFEROL VIT D3 2,000 UNITS TAB/CAP PO SCH (10:20)
[2017-05-02] MEDS: ERTAPENEM 1 GM VIAL IV SCH (10:21)
[2017-05-02] MEDS: PROPRANOLOL HCL 20 MG TAB PO SCH ×3 (12:04→17:41)
--- NOTE | 2017-05-02 13:39 | HOSPPROG ---
Hospitalist Progress Note Assessment/Plan: # h/o rectal prolapse and multiple episodes of diverticulitis- s/p elective sigmoidectomy POD #2 - had some increased distention this am, better with decreasing fluids - fentanyl IV with antiemetics prn - Dr. Iverson following # hypotension - suspect volume depletion - NS bolus, cont IVF's until taking better po - hold propranolol # Fibromyalgia - cont home meds # hypothyroid - cont Synthroid # TATE - cont home CPAP # proph - per surgery SCD's #dispo - cont inpt Subjective: Pt doing ok. Reported increased abdominal distention and bloating this am. She has backed off on liquids and feels better this afternoon. No vomiting. No fevers. No CP, SOB or cough. A bit more difficult to control pain today. Objective: Vital Signs Temp Pulse Resp BP Pulse Ox 37.1 C 98 24 H 108/64 99 05/02/17 12:00 05/02/17 12:00 05/02/17 12:00 05/02/17 12:00 05/02/17 12:00 Laboratory Results 05/02/17 04:30 05/02/17 04:30 05/01/17 05/02/17 05/03/17 05:59 05:59 05:59 Intake Total 2763 2529 110 Output Total 775 1675 400 Balance 1987 854 -290 PT 14.6 SEC (12.0-15.0) 04/30/17 05:01 INR 1.12 (0.83-1.16) 04/30/17 05:01 - Physical Exam Constitutional: no apparent distress Eyes: PERRL Ears, Nose, Mouth, Throat: moist mucous membranes Cardiovascular: regular rate and rhythym Respiratory: no respiratory distress, clear to auscultation Gastrointestinal: normoactive bowel sounds, soft, non-tender abdomen Skin: warm Musculoskeletal: full muscle strength Neurologic: AAOx3 Psychiatric: interacting appropriately ICD10 Worksheet Patient Problems: Problems Problem Status Onset Back pain Acute Diverticulitis Acute
[2017-05-03] MEDS: GABAPENTIN 100 MG CAP PO PRN ×5 (03:40→20:35)
[2017-05-03 04:56] LABS: PLATELET COUNT 238 10^3/uL (150-400)
[2017-05-03] MEDS: LEVOTHYROXINE 100 MCG TAB PO SCH (05:58)
[2017-05-03] MEDS: CYCLOBENZAPRINE 10 MG TAB PO SCH ×3 (05:58→20:35)
[2017-05-03] MEDS: CHOLECALCIFEROL VIT D3 2,000 UNITS TAB/CAP PO SCH (08:15)
[2017-05-03] MEDS: PROPRANOLOL HCL 20 MG TAB PO SCH ×3 (08:16→16:40)
[2017-05-03] MEDS: ERTAPENEM 1 GM VIAL IV SCH (08:17)
--- NOTE | 2017-05-03 08:46 | SOAPPROG ---
SOAP Progress Note Assessment/Plan: Assessment: POD#3 s/p robot-assist sigmoidectomy with transanal excision passing flatus tolerating clears - advance to regular as tolerated voiding spontaneously pain controlled Dispo: inpatient until return of bowel function. seen with Dr. Iverson. S: sore right abdomen but no sharp pains. passing gas. O: laying in bed, comfortable, NAD Clear anteriorly, no increased WOB +BS, softly distended. nontender. incisions CDI Objective: Vital Signs Temp Pulse Resp BP Pulse Ox 36.8 C 88 18 97/62 L 92 05/03/17 07:35 05/03/17 07:35 05/03/17 07:35 05/03/17 07:35 05/03/17 07:35 Laboratory Results 05/03/17 04:06 05/02/17 04:30 05/02/17 05/03/17 05/04/17 05:59 05:59 05:59 Intake Total 2529 2529 Output Total 1675 1500 Balance 854 1029 PT 14.6 SEC (12.0-15.0) 04/30/17 05:01 INR 1.12 (0.83-1.16) 04/30/17 05:01 ICD10 Worksheet Patient Problems: Problems Problem Status Onset Back pain Acute Diverticulitis Acute
[2017-05-03] MEDS ORDERED: MAGNESIUM HYDROXIDE 30 ML UDCUP PO PRN (08:47)
[2017-05-03] MEDS ORDERED: POLYETHYLENE GLYCOL 3350 17 GM PKT PO PRN (08:47)
[2017-05-03] MEDS ORDERED: BISACODYL 10 MG SUPP PR PRN (08:47)
[2017-05-03] MEDS ORDERED: LACTULOSE 20 GM/30 ML UDCUP PO PRN (08:47)
[2017-05-03] MEDS: SENNOSIDES/DOCUSATE SODIUM TAB PO SCH ×2 (12:07→20:34)
--- NOTE | 2017-05-03 15:33 | HOSPPROG ---
Hospitalist Progress Note Assessment/Plan: # h/o rectal prolapse and multiple episodes of diverticulitis - s/p elective sigmoidectomy POD #3 - no IV access right now, will use tramadol for pain control, prn fentanyl when IV replaced - advance diet per surgery - Dr. Iverson following # hypotension - improved with IVF's - holding propranolol # hypoxemia - mild, but crackles noted - check CXR # RUE swelling - may have had some infiltration of her IV - check RUE u/s to r/o DVT # tachycardia - HR 110 at rest during my evaluation. Query volume depletion, but consider PE workup if not improving with IVF's - needs IV access. If unable to get peripheral IV, may need PICC # Fibromyalgia - cont home meds # hypothyroid - cont Synthroid # TATE - cont home CPAP # proph - start Lovenox, ok'd by surg #dispo - cont inpt Subjective: Pt doing ok. She c/o RUE pain and abdominal pain. No CP or SOB. No pleuritic symptoms. Lost RUE IV. No fevers. +flatus, no stool. tolerating clears, no N/V. Objective: Vital Signs Temp Pulse Resp BP Pulse Ox 36.8 C 93 12 104/70 95 05/03/17 12:00 05/03/17 12:13 05/03/17 12:00 05/03/17 12:13 05/03/17 12:00 Laboratory Results 05/03/17 04:06 05/02/17 04:30 05/02/17 05/03/17 05/04/17 05:59 05:59 05:59 Intake Total 2529 2529 Output Total 1675 1500 600 Balance 854 1029 -600 PT 14.6 SEC (12.0-15.0) 04/30/17 05:01 INR 1.12 (0.83-1.16) 04/30/17 05:01 - Physical Exam Constitutional: no apparent distress Eyes: PERRL Ears, Nose, Mouth, Throat: moist mucous membranes Cardiovascular: regular rate and rhythym Respiratory: no respiratory distress, inspiratory crackles Gastrointestinal: normoactive bowel sounds, other (soft, mild TTP, no r/r/g) Skin: warm Musculoskeletal: full muscle strength Neurologic: AAOx3 Psychiatric: interacting appropriately ICD10 Worksheet Patient Problems: Problems Problem Status Onset Back pain Acute Diverticulitis Acute
[2017-05-03] MEDS ORDERED: NS 500 ML IV ONE (16:31)
[2017-05-03] MEDS: traMADol 50 MG TAB PO PRN ×2 (16:39→23:04)
[2017-05-03] MEDS: ENOXAPARIN 40 MG/0.4 ML SYR SC SCH (16:41)
[2017-05-03] MEDS: fentaNYL 100 MCG/2 ML INJ IVP PRN (16:55)
--- NOTE | 2017-05-03 17:02 | ASMTCMCOM ---
CM Note CM Note Notes: PT/OT recommedning home care. Met with pt and to discuss DC needs and both of them prefer a short rehab stay. Pt has [employer] Medicare and will need therapies to recommend SNF and it will be unlikely that [employer] will auth any SNF before Saturday. CM will continue to follow. Date Signed: 05/03/2017 05:02 PM Electronically Signed By:Twila Ramos LCSW
[2017-05-03] MEDS: D5W NS 1,000 ML IV SCH (20:38)
[2017-05-04] MEDS: CYCLOBENZAPRINE 10 MG TAB PO SCH ×3 (06:17→21:19)
--- NOTE | 2017-05-04 07:59 | SOAPPROG ---
SOAP Progress Note Assessment/Plan: Assessment: POD#4 s/p robot-assist sigmoidectomy with transanal excision passing flatus regular as tolerated voiding spontaneously pain controlled bowel protocol Lovenox OK to get PICC if loses access Dispo: inpatient until return of bowel function. seen with Dr. Iverson. S: not very hungry - has lots of food sensitivities. passing gas. taking walks in halls. O: laying in bed, comfortable, NAD Clear anteriorly, no increased WOB +BS, softly distended. nontender. incisions CDI Objective: Vital Signs Temp Pulse Resp BP Pulse Ox 36.3 C 87 18 113/64 96 05/04/17 04:00 05/04/17 04:00 05/04/17 04:00 05/04/17 04:00 05/04/17 04:00 Laboratory Results 05/03/17 04:06 05/02/17 04:30 05/03/17 05/04/17 05/05/17 05:59 05:59 05:59 Intake Total 2529 1540 Output Total 1500 1800 Balance 1029 -260 PT 14.6 SEC (12.0-15.0) 04/30/17 05:01 INR 1.12 (0.83-1.16) 04/30/17 05:01 ICD10 Worksheet Patient Problems: Problems Problem Status Onset Back pain Acute Diverticulitis Acute
[2017-05-04] MEDS: SENNOSIDES/DOCUSATE SODIUM TAB PO SCH ×2 (09:00→21:19)
[2017-05-04] MEDS: ENOXAPARIN 40 MG/0.4 ML SYR SC SCH (09:00)
[2017-05-04] MEDS: CHOLECALCIFEROL VIT D3 2,000 UNITS TAB/CAP PO SCH (09:01)
[2017-05-04] MEDS: PROPRANOLOL HCL 20 MG TAB PO SCH ×3 (09:01→16:41)
[2017-05-04] MEDS: GABAPENTIN 100 MG CAP PO PRN ×3 (09:15→21:19)
[2017-05-04] MEDS: D5W NS 1,000 ML IV SCH (09:16)
--- NOTE | 2017-05-04 15:47 | HOSPPROG ---
Hospitalist Progress Note Assessment/Plan: # h/o rectal prolapse and multiple episodes of diverticulitis - s/p elective sigmoidectomy POD #4 - slow recovery - advance diet per surgery - Dr. Iverson following # hypotension - improved with IVF's - holding propranolol # hypoxemia - mild, CXR personally reviewed and interpreted, suspect atelectasis - cont IS, encourage activity, wean O2 as able # RUE swelling - likely from IV infiltration, U/S neg for DVT # tachycardia - improved with resumption of IVF's (IV was out most of yesterday) # Fibromyalgia - cont home meds # hypothyroid - cont Synthroid # TATE - cont home CPAP # proph - started Lovenox, ok'd by surg #dispo - cont inpt Subjective: Pt doing ok. She spends a lot of time in bed sleeping with her CPAP on. Denies CP or SOB. Less abdominal pain today it seems. No fevers. + flatus, no BM yet. Taking po a little better, but still not sufficient intake. Objective: Vital Signs Temp Pulse Resp BP Pulse Ox 36.4 C 86 15 117/63 96 05/04/17 12:24 05/04/17 12:24 05/04/17 12:24 05/04/17 12:24 05/04/17 12:24 Laboratory Results 05/03/17 04:06 05/02/17 04:30 05/03/17 05/04/17 05/05/17 05:59 05:59 05:59 Intake Total 2529 1540 Output Total 1500 1800 Balance 1029 -260 PT 14.6 SEC (12.0-15.0) 04/30/17 05:01 INR 1.12 (0.83-1.16) 04/30/17 05:01 - Physical Exam Constitutional: no apparent distress Eyes: PERRL Ears, Nose, Mouth, Throat: moist mucous membranes Cardiovascular: regular rate and rhythym Respiratory: no respiratory distress, reduced air movement Gastrointestinal: normoactive bowel sounds, soft, non-tender abdomen Skin: warm Musculoskeletal: full muscle strength Neurologic: AAOx3 Psychiatric: interacting appropriately ICD10 Worksheet Patient Problems: Problems Problem Status Onset Back pain Acute Diverticulitis Acute
--- NOTE | 2017-05-04 16:28 | ASMTCMCOM ---
CM Note CM Note Notes: OT now recommending SNF. Spoke with PT; informed pt refused physical therapy today. CM will need to follow up with PT tomorrow. Date Signed: 05/04/2017 04:28 PM Electronically Signed By:Mallorie Soliman RN
[2017-05-04] MEDS: traMADol 50 MG TAB PO PRN (21:19)
[2017-05-05] MEDS: traMADol 50 MG TAB PO PRN (05:25)
[2017-05-05] MEDS: CYCLOBENZAPRINE 10 MG TAB PO SCH ×3 (05:25→21:06)
[2017-05-05] MEDS: GABAPENTIN 100 MG CAP PO PRN ×4 (05:25→21:06)
[2017-05-05] MEDS: LEVOTHYROXINE 100 MCG TAB PO SCH (05:26)
[2017-05-05] MEDS: PROPRANOLOL HCL 20 MG TAB PO SCH ×3 (09:39→16:17)
[2017-05-05] MEDS: SENNOSIDES/DOCUSATE SODIUM TAB PO SCH ×2 (09:40→21:07)
[2017-05-05] MEDS: CHOLECALCIFEROL VIT D3 2,000 UNITS TAB/CAP PO SCH (09:40)
[2017-05-05] MEDS: ENOXAPARIN 40 MG/0.4 ML SYR SC SCH (09:41)
--- NOTE | 2017-05-05 10:29 | SOAPPROG ---
SOAP Progress Note Assessment/Plan: Assessment: POD#5 s/p robot-assist sigmoidectomy with transanal excision passing flatus - having BMs regular diet as tolerated pain controlled with PO pain meds bowel protocol Lovenox OK to get PICC if loses access superficial thrombophlebitis RUE - elevation and heat Dispo: stable for DC from surgical standpoint. Will need SNF - notified CM. discussed with Dr. June S: hungry this am - ordering breakfast. tolerated eggs yesterday without worsening symptoms. Had an episode of incontinence of stool overnight. Passing flatus O: sitting up in bed, comfortable, NAD no increased WOB +BS, softly distended. nontender. incisions CDI Objective: Vital Signs Temp Pulse Resp BP Pulse Ox 36.6 C 75 14 103/54 L 95 05/05/17 09:24 05/05/17 09:39 05/05/17 09:24 05/05/17 09:39 05/05/17 09:24 Laboratory Results 05/03/17 04:06 05/02/17 04:30 05/04/17 05/05/17 05/06/17 05:59 05:59 05:59 Intake Total 1540 1350 Output Total 1800 1125 400 Balance -260 225 -400 PT 14.6 SEC (12.0-15.0) 04/30/17 05:01 INR 1.12 (0.83-1.16) 04/30/17 05:01 ICD10 Worksheet Patient Problems: Problems Problem Status Onset Back pain Acute Diverticulitis Acute
--- NOTE | 2017-05-05 14:14 | HOSPPROG ---
Hospitalist Progress Note Assessment/Plan: # h/o rectal prolapse and multiple episodes of diverticulitis - s/p elective sigmoidectomy POD #5, now having bowel movements and tolerating po - slow recovery, but finally turning the corner today, doing much better! - regular diet, d/c IVF's - Dr. Iverson following # hypotension - improved with IVF's - holding propranolol # hypoxemia - mild, CXR personally reviewed and interpreted, suspect atelectasis - cont IS, encourage activity, wean O2 as able # RUE swelling - likely from IV infiltration, U/S neg for DVT # tachycardia - improved with resumption of IVF's (IV was out most of yesterday) # Fibromyalgia - cont home meds # hypothyroid - cont Synthroid # TATE - cont home CPAP # proph - started Lovenox, ok'd by surg #dispo - cont inpt, pt would like SNF for ongoing strengthening. Will discuss with CM, possible dc to SNF in 1-2 days when bed available. Subjective: Pt feels better today. More awake, alert and mobile. Eating and drinking better. +BM today. No fevers. Pain better controlled. Objective: Vital Signs Temp Pulse Resp BP Pulse Ox 36.7 C 78 17 101/62 96 05/05/17 13:05 05/05/17 13:05 05/05/17 13:05 05/05/17 13:05 05/05/17 13:05 Laboratory Results 05/03/17 04:06 05/02/17 04:30 05/04/17 05/05/17 05/06/17 05:59 05:59 05:59 Intake Total 1540 1350 Output Total 1800 1125 400 Balance -260 225 -400 PT 14.6 SEC (12.0-15.0) 04/30/17 05:01 INR 1.12 (0.83-1.16) 04/30/17 05:01 - Physical Exam Constitutional: no apparent distress Eyes: PERRL Ears, Nose, Mouth, Throat: moist mucous membranes Cardiovascular: regular rate and rhythym Respiratory: no respiratory distress, other (bibasilar atelectatic crackles) Gastrointestinal: normoactive bowel sounds, soft, non-tender abdomen Skin: warm Musculoskeletal: full muscle strength Neurologic: AAOx3 Psychiatric: interacting appropriately ICD10 Worksheet Patient Problems: Problems Problem Status Onset Back pain Acute Diverticulitis Acute
--- NOTE | 2017-05-05 14:27 | ASMTCMCOM ---
CM Note CM Note Notes: CM met with patient. Surgery has cleared the patient for discharge and is recommending SNF. Pt and OT recommending SNF. The patient states she does not have a preferred facility and would like to be placed in the [facility]. Patient lives at home with and young son, which she shares she depends on but they are very busy. Referrals sent to [place], [place], and [facility] via [employer]. CM to follow and address discharge needs. KALANI D/C plan: SNF Date Signed: 05/05/2017 02:27 PM Electronically Signed By:Angelique Davis
[2017-05-05] MEDS: ACETAMINOPHEN 325 MG TAB PO PRN (15:28)
[2017-05-06] MEDS: LEVOTHYROXINE 100 MCG TAB PO SCH (04:46)
[2017-05-06] MEDS: GABAPENTIN 100 MG CAP PO PRN ×3 (04:46→16:01)
[2017-05-06] MEDS: CYCLOBENZAPRINE 10 MG TAB PO SCH ×2 (04:46→12:25)
[2017-05-06 08:00] VITALS: RESP 16
[2017-05-06] MEDS: SENNOSIDES/DOCUSATE SODIUM TAB PO SCH (08:12)
[2017-05-06] MEDS: CHOLECALCIFEROL VIT D3 2,000 UNITS TAB/CAP PO SCH (08:12)
[2017-05-06] MEDS: PROPRANOLOL HCL 20 MG TAB PO SCH ×3 (08:13→16:01)
[2017-05-06] MEDS: ENOXAPARIN 40 MG/0.4 ML SYR SC SCH (08:14)
--- NOTE | 2017-05-06 09:21 | SOAPPROG ---
SOAP Progress Note Assessment/Plan: Assessment: POD#6 s/p robot-assist sigmoidectomy with transanal excision passing flatus - having BMs regular diet as tolerated pain controlled with PO pain meds Pain at RLQ incision - try lidoderm patch, heat bowel protocol Lovenox OK to get PICC if loses access superficial thrombophlebitis RUE - elevation and heat Dispo: stable for DC from surgical standpoint. Will need SNF S: eating breakfast. having soreness of right lower abdominal wall at surgical incision - only when sitting. Passing flatus and having BMs yesterday, none yet this am O: sitting up in chair, comfortable, NAD No increased WOB +BS, softly distended. nontender. incisions CDI. RLQ incision with small amount resolving ecchymosis Objective: Vital Signs Temp Pulse Resp BP Pulse Ox 36.8 C 72 16 100/60 96 05/06/17 07:57 05/06/17 08:13 05/06/17 07:57 05/06/17 08:13 05/06/17 07:57 Laboratory Results 05/03/17 04:06 05/02/17 04:30 18 05/06/17 05/07/17 05:59 05:59 05:59 Intake Total 1350 1200 Output Total 1125 1750 Balance 225 -550 PT 14.6 SEC (12.0-15.0) 04/30/17 05:01 INR 1.12 (0.83-1.16) 04/30/17 05:01 ICD10 Worksheet Patient Problems: Problems Problem Status Onset Back pain Acute Diverticulitis Acute
[2017-05-06] MEDS ORDERED: LIDOCAINE 5% 1 EA PATCH TD SCH (09:30)
[2017-05-06] MEDS: traMADol 50 MG TAB PO PRN ×2 (10:10→12:15)
--- NOTE | 2017-05-06 11:34 | PDDCSUM ---
Discharge Summary Discharge Summary: DISCHARGE SUMMARY FOLLOW-UP ITEMS: Follow up with Dr. Zahida Iverson as outpatient DATE OF ADMISSION: 04/29/2017 DATE OF DISCHARGE: 05/06/2017 DISCHARGE DIAGNOSES: 1. Recurrent diverticulitis and rectal prolapse requiring elective sigmoidectomy 2. Acute hypotension 3. Acute atelectasis with hypoxia and 4. Chronic fibromyalgia 5. Obstructive sleep apnea CONSULTATIONS: General surgery, Hospital Medicine PROCEDURES / IMAGING: Sigmoidectomy CHIEF COMPLAINT: Elective sigmoidectomy SUBJECTIVE: Patient is feeling well at time charge, her pain is well managed, she has had a bowel movement within the last 24 hr PHYSICAL EXAM ON DISCHARGE: Systolic blood pressure is 100, heart rate 70, afebrile overnight, satting well on room air, bowel sounds are active, abdomen is soft, mildly tender to moderate palpation, no erythema around the surgical sites, well-healing, lungs are clear to auscultation bilaterally, heart rhythm is regular, distant heart sounds, alert awake oriented x3, flat affect HOSPITAL COURSE BY PROBLEM: 1. Diverticulitis and rectal prolapse. Recurrent, requiring elective sigmoidectomy by Dr. Zahida Iverson, patient is postop day 6, and has been having bowel movements while on a bowel regimen, tolerating oral intake, did experience protracted recovery with postoperative pain and hypotension secondary to poor oral intake. The patient has successfully advanced her diet, she has had a bowel movement within the last 24 hr, and her pain is currently well managed with tramadol and Lidoderm patch. The patient should follow up with Dr. Zahida Iverson in 2 weeks time, and remain on a bowel regimen to prevent constipation. 2. Acute attention. Secondary to poor oral intake, patient's propranolol was temporarily discontinued, will remain off of propranolol until she has completely recovered postoperatively. 3. Acute atelectasis. Chest x-ray without infiltrate, placed on incentive spirometer, will continue on 1 L nasal cannula oxygen at discharge if required. 4. Chronic fibromyalgia. Patient was continued on home pain medications. 5. Chronic obstructive sleep apnea. Continue on CPAP at night. DISCHARGE MEDICATIONS: Please see official discharge medication reconciliation sheet in chart , continue on all home medications with the exception discontinuation of propranolol, adjustment in dosing of tramadol, addition of Lidoderm patch. Addition of bowel regiment. DISCHARGE INSTRUCTIONS: Please schedule follow-up at Dr. Zahida Iverson office in 2 weeks time. TIME SPENT: Greater than 30 minutes were spent on direct patient care, as well as discharge planning and preparation.
--- NOTE | 2017-05-06 11:35 | PDIAF ---
- Diagnosis Diagnosis: Diverticulosis requiring sigmoidectomy, fibromyalgia Code Status: Full Code - Medication Management Discharge Medications: Medications to Continue on Transfer Cyclobenzaprine [Flexeril 10 MG (*)] 10 mg PO TID 03/10/14 [Last Taken 04/29/17] Gabapentin [Neurontin 100 MG (*)] 100 mg PO Q3HRS PRN 03/10/14 [Last Taken 04/29] Levothyroxine [Synthroid 100 mcg (*)] 100 mcg PO SUMOTUWETHFR 05/24/15 [Last Taken 04/29/17] Amitriptyline HCl [Elavil 10 mg (*)] 20 mg PO HS PRN 04/25/17 [Last Taken Unknown] Carboxymethylcellulose 1% [Refresh Celluvisc (*)] 1 drop EACHEYE BID PRN [Last Taken 04/28/17] Cholecalciferol Vit D3 [Vitamin D3 2000 units tab (OTC)] 4,000 units PO DAILY [Last Taken 04/24/17] Herbals/Supplements -Info Only 1 ea PO DAILY 04/25/17 [Last Taken 04/26/17] Acetaminophen [Tylenol 325mg (*)] 650 mg PO Q4HRS PRN tab 05/06/17 [Last Taken Unknown] Lidocaine 5% [Lidoderm 5% Patch (*)] 1 ea TD DAILY patch 05/06/17 [Last Taken Unknown] Ondansetron Odt [Zofran Odt 4 mg (*)] 4 mg PO Q4HRS PRN tab 05/06/17 [Last Taken Unknown] Patch Removal 1 ea TD DAILY21 patch 05/06/17 [Last Taken Unknown] Polyethylene Glycol 3350 [Miralax 17 gm (*)] 17 gm PO DAILY PRN pkt 05/06/17 [ Last Taken Unknown] Sennosides/Docusate Sodium [Senokot-S] 1 - 2 tab PO BID tab 05/06/17 [Last Taken Unknown] traMADol [Ultram 50 mg (*)] 50 mg PO Q6 PRN #0 05/06/17 [Last Taken 03/25/17] Fast Food Sales Assistant Antibiotics: NA Discharge Medications: Refer to the Discharge Home Medication list for PRN reason. PICC Care - Routine: N/A - Orders Services needed: Registered Nurse, Certified Sales And Marketing Administrator, Physical Therapy, Occupational Therapy Isolation Type: None Oxygen: 1LPM as needed, home CPAP at night for TATE Diet Recommendation: no restrictions on diet Church: Not applicable Activity/Weight Bearing Restrictions: as tolerated - Follow Up Care Current Providers and Referrals: Dang Yee NP [Primary Care Provider] - Zahida Iverson MD [Medical Doctor] - follow up in 2 weeks (please call to schedule)
[2017-05-06 15:18] VITALS: BP 123/69; PULSE 79; TEMP 98.3; O2SAT 92
--- NOTE | 2017-05-06 15:45 | PDIAF ---
- Diagnosis Diagnosis: Diverticulosis requiring sigmoidectomy, fibromyalgia Code Status: Full Code - Medication Management Discharge Medications: Medications to Continue on Transfer Cyclobenzaprine [Flexeril 10 MG (*)] 10 mg PO TID 03/10/14 [Last Taken 04/29/17] Gabapentin [Neurontin 100 MG (*)] 100 mg PO Q3HRS PRN 03/10/14 [Last Taken 04/29] Levothyroxine [Synthroid 100 mcg (*)] 100 mcg PO SUMOTUWETHFR 05/24/15 [Last Taken 04/29/17] Amitriptyline HCl [Elavil 10 mg (*)] 20 mg PO HS PRN 04/25/17 [Last Taken Unknown] Carboxymethylcellulose 1% [Refresh Celluvisc (*)] 1 drop EACHEYE BID PRN [Last Taken 04/28/17] Cholecalciferol Vit D3 [Vitamin D3 2000 units tab (OTC)] 4,000 units PO DAILY [Last Taken 04/24/17] Herbals/Supplements -Info Only 1 ea PO DAILY 04/25/17 [Last Taken 04/26/17] Acetaminophen [Tylenol 325mg (*)] 650 mg PO Q4HRS PRN tab 05/06/17 [Last Taken Unknown] Lidocaine 5% [Lidoderm 5% Patch (*)] 1 ea TD DAILY patch 05/06/17 [Last Taken Unknown] Ondansetron Odt [Zofran Odt 4 mg (*)] 4 mg PO Q4HRS PRN tab 05/06/17 [Last Taken Unknown] Patch Removal 1 ea TD DAILY21 patch 05/06/17 [Last Taken Unknown] Polyethylene Glycol 3350 [Miralax 17 gm (*)] 17 gm PO DAILY PRN pkt 05/06/17 [ Last Taken Unknown] Propranolol HCl [Inderal 20mg (*)] 20 mg PO TID@,,16 tab 05/06/17 [Last Taken Unknown] Sennosides/Docusate Sodium [Senokot-S] 1 - 2 tab PO BID tab 05/06/17 [Last Taken Unknown] traMADol [Ultram 50 mg (*)] 50 mg PO Q6 PRN #0 05/06/17 [Last Taken 01/01/18] Church Communications Administrator Antibiotics: NA Discharge Medications: Refer to the Discharge Home Medication list for PRN reason. PICC Care - Routine: N/A - Orders Services needed: Registered Nurse, Certified Caustic Loader, Physical Therapy, Occupational Therapy Isolation Type: None Oxygen: 1LPM as needed, home CPAP at night for TATE Diet Recommendation: no restrictions on diet Church: Not applicable Activity/Weight Bearing Restrictions: as tolerated - Follow Up Care Current Providers and Referrals: Zahida Iverson MD [Medical Doctor] - follow up in 2 weeks (please call to schedule) Dang Yee NP [Primary Care Provider] -
[2017-05-06] MEDS: ACETAMINOPHEN 325 MG TAB PO PRN (16:04)
[2017-05-06] MEDS ORDERED: PATCH REMOVAL 1 EA PATCH TD SCH (21:00)
--- NOTE | 2017-05-08 09:07 | ASDISCHSUM ---
Discharge Information Plan Status:SNF Medically Cleared to Leave: Discharge Date:05/06/2017 04:12 PM CM D/C Disposition:[facility] Facility ADT D/C Disposition:[facility] Facility Projected Discharge Date:05/06/2017 03:30 AM Transportation at D/C:Wheelchair Van Discharge Delay Reason: Follow-Up Date:05/06/2017 03:30 AM Discharge Slot: Final Diagnosis:Sigmoidectomy with transanal exision Placement Information Referral Type:*Assisted/SNF Referral ID:[id number] Provider Name: Address 1: Phone Number: Address 2: Fax Number: City: Selection Factors: State: Patient Contact Information Contact Name:TERESOCYNTHIAMATEO Relationship: Address:[address] City:[place] Alternate Phone: [facility] Code:[place] [address] Email: Financial Information Financial Class:Medicare Advantage Plans Primary Plan Desc:[employer] MCC[employer] PPO MEDICARE Primary Plan Number:[id number] Secondary Plan Desc: Secondary Plan Number: Assessment Information [facility] CM Progress Note CM Note CM Note Notes: Patient admitted with rectal prolapse and multiple attacks of diverticulitis. She had a colonscopy yesterday and went to OR today for sigmoidectomy and possible ostomy. She lives with her . No therapies have been ordered. Case Management will follow for discharge planning. Date Signed: 04/30/2017 09:23 AM Electronically Signed By:Ginger Cabrera RN [facility] CM Progress Note CM Note CM Note Notes: PT/OT recommedning home care. Met with pt and to discuss DC needs and both of them prefer a short rehab stay. Pt has [employer] Medicare and will need therapies to recommend SNF and it will be unlikely that [employer] will auth any SNF before Saturday. CM will continue to follow. Date Signed: 05/03/2017 05:02 PM Electronically Signed By:Twila Ramos LCSW [facility] CM Progress Note CM Note CM Note Notes: OT now recommending SNF. Spoke with PT; informed pt refused physical therapy today. CM will need to follow up with PT tomorrow. Date Signed: 05/04/2017 04:28 PM Electronically Signed By:Mallorie Soliman RN [facility] CM Progress Note CM Note CM Note Notes: CM met with patient. Surgery has cleared the patient for discharge and is recommending SNF. Pt and OT recommending SNF. The patient states she does not have a preferred facility and would like to be [facility] in [facility]. Patient lives at home with and young son, which she shares she depends on but they are very busy. [facility] to [facility], and [facility] via [facility]. CM to follow and address discharge needs. CM D/C plan: SNF Date Signed: 05/05/2017 02:27 PM Electronically Signed By:Angelique Davis Case Management Discharge Plan Note Case Management Discharge Discharge Order Complete? Answers: Yes Patient to Obtain Answers: Other [facility] Medic[facility] Transportation Arranged Answers: Other Notes: van Transport will Pick (Date 05/06/2017 03:30 AM & Time) Family Notified Answers: Yes Notes: and daughter present Discharge Comments Notes: Pt informed CM this AM that [facility] was her 1st choice for SNF. After speaking w/Nasreen at [facility] they are able to accept and have obtained insurance auth. Discussed w/pt, abd daughter and they are in agreement w/dc poc. DC orders and info sent to [facility] through [facility]. Discussed w/Dr Osborn and RN who will call report to facility. Date Signed: 05/06/2017 02:21 PM Electronically Signed By:Paola Villegas RN Intervention Information Intervention Type:*IM-Signed Date of Service:05/06/2017 12:28 PM Patient Type:Inpatient Staff Member:Estrella Aguayo Hours: Discipline: Severity: Comment:
== END 2017-05-06 16:12 | DRG 330 ==
LOC: FSGY 07:33 → EDSTATUS 09:00 → F1N 10:12
PROVIDERS: ADMIT Surgery; ATTEND Surgery
PROC: 0DBN8ZX Excision of Sigmoid Colon, Via Natural or Artificial Opening Endoscopic, Diagnostic (ICD-10-PCS; 2017-04-29)
PROC: 0DTN4ZZ Resection of Sigmoid Colon, Percutaneous Endoscopic Approach (ICD-10-PCS; principal; 2017-04-30 07:30)
PROC: 8E0W4CZ Robotic Assisted Procedure of Trunk Region, Percutaneous Endoscopic Approach (ICD-10-PCS; principal; 2017-04-30 07:30)
DX: K57.32 Diverticulitis of large intestine without perforation or abscess without bleeding (principal); K62.3 Rectal prolapse; J98.11 Atelectasis; R09.02 Hypoxemia; I95.9 Hypotension, unspecified; D12.5 Benign neoplasm of sigmoid colon; G47.33 Obstructive sleep apnea (adult) (pediatric); E03.9 Hypothyroidism, unspecified; M79.7 Fibromyalgia; I73.00 Raynaud's syndrome without gangrene; R25.1 Tremor, unspecified; Z92.3 Personal history of irradiation; Z80.0 Family history of malignant neoplasm of digestive organs
CPT/HCPCS: 97110-GP; 97116-GP; 97161-GP; 97166-GO; 97535-GO; C9399; J0694; J1100; J1335; J1650; J2274; J2405; J2704; J3010

== ENCOUNTER → 2018-01-16 | Outpatient (CLI) | payer OTHER | LOC: FIMAGING 15:31 | PROVIDERS: ATTEND Internal Medicine Rheumatology | DX: R07.89 Other chest pain (principal) ==

== ENCOUNTER → 2018-04-17 | Outpatient (CLI) | payer OTHER | LOC: FIMAGING 17:04 | PROVIDERS: ATTEND Nurse Practitioner | DX: M79.602 Pain in left arm (principal) ==

== ENCOUNTER → 2018-05-21 | Outpatient (CLI) | payer OTHER | LOC: FIMAGING 14:06 | PROVIDERS: ATTEND Nurse Practitioner | DX: N95.1 Menopausal and female climacteric states (principal); M81.0 Age-related osteoporosis without current pathological fracture ==

== ENCOUNTER → 2018-06-03 | Outpatient (CLI) | payer OTHER | LOC: FIMAGING 14:42 | PROVIDERS: ATTEND Nurse Practitioner | DX: Z12.31 Encounter for screening mammogram for malignant neoplasm of breast (principal); Z80.3 Family history of malignant neoplasm of breast ==